=== PATIENT | male | born 1990 | race Asian ===

== ENCOUNTER 2016-08-05 22:53 | Emergency (ER) | payer OTHER ==
--- NOTE | 2016-08-05 23:54 | EDPHY ---
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 Patient states over the last 1 month he has had increasing depression. He has felt suicidal. He does not have a plan. He states that this began when he was taking an oral examination with 1 of his finals. He saw somebody at [facility], on Thursday, 5 days ago with similar symptoms. He had laboratory studies and was scheduled to see someone for mental health in 2 weeks. The patient states that he has had difficulty urinating. Denies any pain associated with urination. He says that the urinalysis test at [facility] did not show any signs of infection. He has not seen a urologist. REVIEW OF SYSTEMS: Constitutional: No fever, no chills. Eyes: No double or blurry vision. ENT: No sore throat. Respiratory: No cough, no shortness of breath. Cardiac: No chest pain. Gastrointestinal: No abdominal pain, vomiting or diarrhea. Genitourinary: No dysuria, urgency or frequency with urination. Musculoskeletal: No neck or back pain. Skin: No rashes. Neurological: No headache. (Amber Byrd) Past Medical/Surgical History: Negative (Amber Byrd) Social History: [employer] [facility] ([place], [place]) student from [place] (CandieAmber barba) Physical Exam: General Appearance: Alert, no distress. Eyes: Pupils equal and round. Extraocular motions are all intact. ENT: Mouth: Mucous membranes moist. Respiratory: No wheezing, rhonchi, or rales, lungs are clear to auscultation. Cardiovascular: Regular rate and rhythm. Gastrointestinal: Abdomen is soft and nontender, no masses, no rebound or guarding, bowel sounds normal. Neurological: Alert and oriented x 3, cranial nerves II through XII grossly intact Skin: Warm and dry, no rashes. Musculoskeletal: Nontender to palpate along the cervical, thoracic or lumbar spine. Neck is supple. Extremities: Full range of motion and no peripheral edema. Psychiatric: Patient is oriented X 3, there is no agitation. (Amber Byrd) Constitutional: Initial Vital Signs Temperature (C) 36.4 C 08/05/16 22:56 Heart Rate 74 08/05/16 22:56 Respiratory Rate 16 08/05/16 22:56 Blood Pressure 149/87 H 08/05/16 22:56 O2 Sat (%) 93 08/05/16 22:56 O2 Delivery Mode Room Air Allergies/Adverse Reactions: No Known Allergies Allergy (Verified 02/05/16 21:18) Home Medications: Medication Instructions Recorded NK [No Known Home Meds] 08/05/16 Medical Decision Making ED Course/Re-evaluation: 26-year-old male presents to the emergency department feeling depressed. I asked the patient was feeling suicidal and he states "I don't know." He does not have a plan. He is requesting to speak with someone from mental health. We are awaiting laboratory studies. Once he is medically cleared, he will be evaluated by mental health. (Amber Byrd) Pt s/o to me pending evaluation. Pt having difficulty urinating, feeling depressed. Awaiting lab results. Awaiting evaluation. post-void residual is zero. Urinalysis is negative. There is patient has never been sexually active. No history of sexually transmitted diseases. No urinary frequency urgency. No burning with urination. Patient states that his feeling of anxiousness is from his concerns about his urination. I have reassured him that were noticing any problems at this time. Patient is not suicidal. He is uli for safety. I do not feel he is in need of a mental health [facility] health evaluation at this time. I will refer him to Urology for further evaluation if he continues to have difficulty with urination. Otherwise he is completely neurologically intact without any other findings. (Ronaldo Mendez) Differential Diagnosis: Depression including functional and major depression, situational depression, medication side effect, drugs and alcohol abuse. (Amber Byrd) Care Turn Over: Care will be turned over to Dr. Mendez at shift change for disposition and plan. (Amber Byrd) - Data Points Laboratory Results: Laboratory Results 08/05/16 23:50 08/05/16 23:50 08/05/16 08/05/16 08/05/16 23:55 23:55 23:50 WBC RBC Hgb Hct MCV MCH MCHC RDW Plt Count MPV Neut % (Auto) Lymph % (Auto) [place] % (Auto) Eos % (Auto) Baso % (Auto) Nucleat RBC Rel Count Absolute Neuts (auto) Absolute Lymphs (auto) Absolute Monos (auto) Absolute Eos (auto) Absolute Basos (auto) Absolute Nucleated RBC Immature Gran % Immature Gran # Sodium 138 mEq/L mEq/L (134-144) Potassium 4.1 mEq/L mEq/L (3.5-5.2) Chloride 104 mEq/L mEq/L (97-110) Carbon Dioxide 24 mEq/l mEq/l (22-31) Anion Gap 10 mEq/L mEq/L (8-16) BUN 15 mg/dL mg/dL (7-23) Creatinine 0.8 mg/dL mg/dL (0.7-1.3) Estimated GFR > 60 Glucose 95 mg/dL mg/dL (70-100) Calcium 10.2 mg/dL mg/dL (8.5-10.4) TSH 4.840 uIU/mL H uIU/mL (0.465-4.680) Urine Color YELLOW Urine Appearance CLEAR Urine pH 6.0 (5.0-7.5) Ur Specific [place] 1.004 (1.002-1.030) Urine Protein NEGATIVE (NEGATIVE) Urine Ketones NEGATIVE (NEGATIVE) Urine Blood NEGATIVE (NEGATIVE) Urine Nitrate NEGATIVE (NEGATIVE) Urine Bilirubin NEGATIVE (NEGATIVE) Urine Urobilinogen NEGATIVE EU EU (0.2-1.0) Ur Leukocyte Esterase NEGATIVE (NEGATIVE) Urine Glucose NEGATIVE (NEGATIVE) Urine Opiates Screen NEGATIVE (NEGATIVE) Urine Barbiturates NEGATIVE (NEGATIVE) Ur Phencyclidine Scrn NEGATIVE (NEGATIVE) Ur Amphetamine Screen NEGATIVE (NEGATIVE) U Benzodiazepines Scrn NEGATIVE (NEGATIVE) Urine Cocaine Screen NEGATIVE (NEGATIVE) U Marijuana (THC) Screen NEGATIVE (NEGATIVE) Ethyl Alcohol < 10 mg/dL mg/dL (0-10) 08/05/16 23:50 WBC 7.81 10^3/uL 10^3/uL (3.80-9.50) RBC 5.45 10^6/uL 10^6/uL (4.40-6.38) Hgb 15.9 g/dL g/dL (13.7-17.5) Hct 45.2 % % (40.0-51.0) MCV 82.9 fL fL (81.5-99.8) MCH 29.2 pg pg (27.9-34.1) MCHC 35.2 g/dL g/dL (32.4-36.7) RDW 11.6 % % (11.5-15.2) Plt Count 252 10^3/uL 10^3/uL (150-400) MPV 9.8 fL fL (8.7-11.7) Neut % (Auto) 55.3 % % (39.3-74.2) Lymph % (Auto) 35.9 % % (15.0-45.0) [place] % (Auto) 7.4 % % (4.5-13.0) Eos % (Auto) 0.6 % % (0.6-7.6) Baso % (Auto) 0.5 % % (0.3-1.7) Nucleat RBC Rel Count 0.0 % % (0.0-0.2) Absolute Neuts (auto) 4.32 10^3/uL 10^3/uL (1.70-6.50) Absolute Lymphs (auto) 2.80 10^3/uL 10^3/uL (1.00-3.00) Absolute Monos (auto) 0.58 10^3/uL 10^3/uL (0.30-0.80) Absolute Eos (auto) 0.05 10^3/uL 10^3/uL (0.03-0.40) Absolute Basos (auto) 0.04 10^3/uL 10^3/uL (0.02-0.10) Absolute Nucleated RBC 0.00 10^3/uL 10^3/uL (0-0.01) Immature Gran % 0.3 % % (0.0-1.1) Immature Gran # 0.02 10^3/uL 10^3/uL (0.00-0.10) Sodium Potassium Chloride Carbon Dioxide Anion Gap BUN Creatinine Estimated GFR Glucose Calcium TSH Urine Color Urine Appearance Urine pH Ur Specific [place] Urine Protein Urine Ketones Urine Blood Urine Nitrate Urine Bilirubin Urine Urobilinogen Ur Leukocyte Esterase Urine Glucose Urine Opiates Screen Urine Barbiturates Ur Phencyclidine Scrn Ur Amphetamine Screen U Benzodiazepines Scrn Urine Cocaine Screen U Marijuana (THC) Screen Ethyl Alcohol Departure - Departure Clinical Impression: Difficulty urinating Condition: Good Instructions: Dysuria (ED) Additional Instructions: Follow up with Dr Hsu, urology. Call for next available appointment. Return emergency depart for increasing pain, nausea, vomiting, anxiety, depression, or any other concerns. Referrals: Stephen Hsu MD [Medical Doctor] - As per Instructions (Urologist on-call)
[2016-08-05 23:57] LABS: % IMMATURE GRANULYOCYTES 0.3 % (0.0-1.1); ABSOLUTE IMMATURE GRANULOCYTES 0.02 10^3/uL (0.00-0.10); ADD DIFF? NO; ADD MORPH? NO; ADD SCAN? NO; ATYPICAL LYMPHOCYTE FLAG 0 (0-99); FRAGMENT RBC FLAG 0 (0-99); HEMATOCRIT 45.2 % (40.0-51.0); HEMOGLOBIN 15.9 g/dL (13.7-17.5); LEFT SHIFT FLG 0 (0-99); LIPEMIA HEMOLYSIS FLAG 90 (0-99); MEAN CELL HEMOGLOBIN 29.2 pg (27.9-34.1); MEAN CELL HEMOGLOBIN CONCENTR. 35.2 g/dL (32.4-36.7); MEAN CELL VOLUME 82.9 fL (81.5-99.8); MEAN PLATELET VOLUME 9.8 fL (8.7-11.7); PLATELET CLUMPS FLAG 0 (0-99); PLATELET COUNT 252 10^3/uL (150-400); RED BLOOD CELL COUNT 5.45 10^6/uL (4.40-6.38); RED CELL DISTRIBUTION WIDTH 11.6 % (11.5-15.2)
[2016-08-06 00:24] LABS: ANION GAP 10 mEq/L (8-16); CALCIUM 10.2 mg/dL (8.5-10.4); CARBON DIOXIDE 24 mEq/l (22-31); CHLORIDE 104 mEq/L (97-110); CREATININE 0.8 mg/dL (0.7-1.3); ETHANOL SERUM < 10 mg/dL (0-10); GLOMERULAR FILTRATION RATE > 60; GLUCOSE 95 mg/dL (70-100); POTASSIUM 4.1 mEq/L (3.5-5.2); SODIUM 138 mEq/L (134-144)
[2016-08-06 03:51] LABS: COLOR YELLOW; LEUKOCYTE ESTERASE,URINE NEGATIVE (NEGATIVE); NITRITE,URINE NEGATIVE (NEGATIVE)
[2016-08-06 04:24] VITALS: BP 140/82; PULSE 82; RESP 18; TEMP 97.7; O2SAT 94
== END 2016-08-06 04:24 | disposition home or self-care (01) ==
DX: R30.0 Dysuria (principal)
CPT/HCPCS: 80305; G0480

== ENCOUNTER 2016-08-08 15:26 | Emergency (ER) | payer OTHER ==
--- NOTE | 2016-08-08 16:16 | EDPHY ---
H & P Time Seen by Provider: 08/08/16 15:44 HPI/ROS: CHIEF COMPLAINT: It is difficult to pee HISTORY OF PRESENT ILLNESS: This 26-year-old man was seen in our emergency department on August 05 with depression and difficulty urinating. At that time he had a postvoid residual of 0 and a negative urinalysis. His CBC was normal and his creatinine was 0.8. The patient contracted for safety and was not suicidal and was discharged, was seen by Urology on the . He was started on Rapaflo and Uribel. The patient presents today concerned again that he can't urinate. He says that he is thinking about all the time and that it is "making my brain insane." Denies abdominal pain or fever or hematuria, denies back pain or weakness or numbness in extremities, denies overdose. REVIEW OF SYSTEMS: Eye: no change in vision ENT: no sore throat Cardiac: no chest pain or syncope Pulmonary: no cough or SOB Abdomen: no vomiting, diarrhea, abdominal pain Musculoskeletal: no back pain Skin: no rash Neuro: no headache Constitutional: no fever : HPI A comprehensive 10 point review of systems is otherwise negative aside from elements mentioned in the history of present illness. PAST MEDICAL HISTORY: Negative except for HPI Social history: Denies alcohol or drugs General Appearance: Alert and conversant, cooperative. Eyes: No scleral icterus. ENT, Mouth: Normal mucous membranes. Respiratory: Normal respiratory effort, breath sounds equal, lungs are clear to auscultation. Cardiovascular: Regular rate and rhythm. Gastrointestinal: Abdomen is soft and non tender. Normal male externally, normal testicles and penis. Neurological: Alert and oriented x3. Normally conversant. Face symmetric, normal movement and sensation in all extremities. Ambulatory. Skin: Warm and dry, no rashes. Musculoskeletal: No peripheral edema and no joint swelling. Psychiatric: Patient appears agitated and then calm. Emergency Department course/MDM: I explained to the patient that I think he needs to give his urology treatment plan some more time to work. At that time he collapsed supine on the bed and told me that he was "going crazy" and that he thinks he "might hurt myself" if he is discharged without a "solution to my problem." This time patient is endorsing ideas of self harm, and is placed on a mental health hold by myself to ensure psychiatric evaluation. 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 Clinical impression by evaluators he has a somatoform disorder, complicated by anxiety. Recommended that the patient not be on hold, discharged outpatient, follow up with psychiatrist or psychologist at work when he returns. Hold vacated by myself. Smoking Status: Never smoked Constitutional: Initial Vital Signs Temperature (C) 36.8 C 08/08/16 15:29 Heart Rate 71 08/08/16 15:29 Respiratory Rate 16 08/08/16 15:29 Blood Pressure 113/74 08/08/16 15:29 O2 Delivery Mode Room Air Allergies/Adverse Reactions: No Known Allergies Allergy (Verified 02/05/16 21:18) Home Medications: Medication Instructions Recorded LORazepam [Lorazepam] 0.5 mg PO Q12 PRN #3 tablet 08/08/16 Medical Decision Making Differential Diagnosis: Differential for depression considered including but not limited to axis 1 depression, bipolar disorder, schizophrenia, metabolic, drug or alcohol. - Data Points Laboratory Results: Laboratory Results 08/08/16 15:20 08/08/16 15:20 08/08/16 08/08/16 08/08/16 15:20 15:20 15:20 WBC 7.12 10^3/uL 10^3/uL (3.80-9.50) RBC 5.09 10^6/uL 10^6/uL (4.40-6.38) Hgb 15.1 g/dL g/dL (13.7-17.5) Hct 42.9 % % (40.0-51.0) MCV 84.3 fL fL (81.5-99.8) MCH 29.7 pg pg (27.9-34.1) MCHC 35.2 g/dL g/dL (32.4-36.7) RDW 11.7 % % (11.5-15.2) Plt Count 238 10^3/uL 10^3/uL (150-400) MPV 10.0 fL fL (8.7-11.7) Neut % (Auto) 66.7 % % (39.3-74.2) Lymph % (Auto) 25.1 % % (15.0-45.0) [place] % (Auto) 7.2 % % (4.5-13.0) Eos % (Auto) 0.3 % L % (0.6-7.6) Baso % (Auto) 0.4 % % (0.3-1.7) Nucleat RBC Rel Count 0.0 % % (0.0-0.2) Absolute Neuts (auto) 4.75 10^3/uL 10^3/uL (1.70-6.50) Absolute Lymphs (auto) 1.79 10^3/uL 10^3/uL (1.00-3.00) Absolute Monos (auto) 0.51 10^3/uL 10^3/uL (0.30-0.80) Absolute Eos (auto) 0.02 10^3/uL L 10^3/uL (0.03-0.40) Absolute Basos (auto) 0.03 10^3/uL 10^3/uL (0.02-0.10) Absolute Nucleated RBC 0.00 10^3/uL 10^3/uL (0-0.01) Immature Gran % 0.3 % % (0.0-1.1) Immature Gran # 0.02 10^3/uL 10^3/uL (0.00-0.10) Sodium 138 mEq/L mEq/L (134-144) Potassium 3.9 mEq/L mEq/L (3.5-5.2) Chloride 105 mEq/L mEq/L (97-110) Carbon Dioxide 23 mEq/l mEq/l (22-31) Anion Gap 10 mEq/L mEq/L (8-16) BUN 14 mg/dL mg/dL (7-23) Creatinine 0.9 mg/dL mg/dL (0.7-1.3) Estimated GFR > 60 Glucose 103 mg/dL H mg/dL (70-100) Calcium 9.9 mg/dL mg/dL (8.5-10.4) Salicylates < 1.0 mg/dL L mg/dL (2.0-20.0) Urine Opiates Screen NEGATIVE (NEGATIVE) Acetaminophen < 10 mcg/mL L mcg/mL (10.0-30.0) Urine Barbiturates NEGATIVE (NEGATIVE) Ur Phencyclidine Scrn NEGATIVE (NEGATIVE) Ur Amphetamine Screen NEGATIVE (NEGATIVE) U Benzodiazepines Scrn NEGATIVE (NEGATIVE) Urine Cocaine Screen NEGATIVE (NEGATIVE) U Marijuana (THC) Screen NEGATIVE (NEGATIVE) Medications Given: Discontinued Medications Lorazepam (Ativan) 0.5 mg PO EDNOW ONE Stop: 08/08/16 17:21 Last Admin: 08/08/16 17:25 Dose: 0.5 mg Departure - Departure Disposition: Home, Routine, Self-Care Clinical Impression: Difficulty urinating, Anxiety Condition: Good Instructions: Anxiety (ED) Additional Instructions: Continue medications as prescribed by your urology specialist. Referrals: Stephen Hsu MD [Medical Doctor] - As per Instructions [facility] [Clinic] - As per Instructions Prescriptions: LORazepam [Lorazepam] 0.5 mg PO Q12 PRN #3 tablet PRN Reason: Anxiety
[2016-08-08 16:25] LABS: % IMMATURE GRANULYOCYTES 0.3 % (0.0-1.1); ABSOLUTE IMMATURE GRANULOCYTES 0.02 10^3/uL (0.00-0.10); ADD DIFF? NO; ADD MORPH? NO; ADD SCAN? NO; ATYPICAL LYMPHOCYTE FLAG 0 (0-99); FRAGMENT RBC FLAG 0 (0-99); HEMATOCRIT 42.9 % (40.0-51.0); HEMOGLOBIN 15.1 g/dL (13.7-17.5); LEFT SHIFT FLG 0 (0-99); LIPEMIA HEMOLYSIS FLAG 90 (0-99); MEAN CELL HEMOGLOBIN 29.7 pg (27.9-34.1); MEAN CELL HEMOGLOBIN CONCENTR. 35.2 g/dL (32.4-36.7); MEAN CELL VOLUME 84.3 fL (81.5-99.8); PLATELET CLUMPS FLAG 0 (0-99); PLATELET COUNT 238 10^3/uL (150-400); RED BLOOD CELL COUNT 5.09 10^6/uL (4.40-6.38); RED CELL DISTRIBUTION WIDTH 11.7 % (11.5-15.2)
[2016-08-08 16:41] LABS: ANION GAP 10 mEq/L (8-16); CALCIUM 9.9 mg/dL (8.5-10.4); CARBON DIOXIDE 23 mEq/l (22-31); CHLORIDE 105 mEq/L (97-110); CREATININE 0.9 mg/dL (0.7-1.3); GLOMERULAR FILTRATION RATE > 60; GLUCOSE 103 mg/dL (70-100); POTASSIUM 3.9 mEq/L (3.5-5.2); SALICYLATE < 1.0 mg/dL (2.0-20.0); SODIUM 138 mEq/L (134-144)
[2016-08-08] MEDS ORDERED: LORazepam 0.5 MG TAB PO ONE (17:20)
[2016-08-08 17:37] VITALS: BP 138/90; PULSE 69; RESP 18; TEMP 97.5; O2SAT 96
== END 2016-08-08 17:37 | disposition home or self-care (01) ==
DX: R39.198 Other difficulties with micturition (principal); F41.9 Anxiety disorder, unspecified
CPT/HCPCS: 80305; G0480